=== PATIENT | female | born 1995 | race Two or more races ===

== ENCOUNTER 2018-08-26 23:23 | Emergency (ER) | payer MEDICAID ==
[~2018-08-26] VITALS: Ht 149.9 cm; Wt 63.5 kg
[2018-08-27 00:10] VITALS: BP 133/85
[2018-08-27] MEDS ORDERED: LIDODERM700 M1 TOPIC (00:36)
[2018-08-27] MEDS ORDERED: ROBAXIN-750750 MG PO (00:36)
[2018-08-27] MEDS ORDERED: IBUPROFEN600 MG ORAL (00:36)
[2018-08-27 00:50] VITALS: BP 133/85
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
== END 2018-08-27 00:50 | disposition home or self-care (01) ==
LOC: EMR 08-27 00:48
DX: S86.811A Strain of other muscle(s) and tendon(s) at lower leg level, right leg, initial encounter (principal); V43.62XA Car passenger injured in collision with other type car in traffic accident, initial encounter; Y92.410 Unspecified street and highway as the place of occurrence of the external cause
CPT/HCPCS: 99282